=== PATIENT | female | born 1955 | race Caucasian/White ===

== ENCOUNTER 2018-10-09 23:24 | Emergency (ER) | payer OTHER ==
--- NOTE | 2018-10-09 23:26 | ER Report ---
History and Physical Time Seen By MD: 23:22 HPI/ROS CHIEF COMPLAINT: Vomiting and diarrhea 2 days HISTORY OF PRESENT ILLNESS: 62-year-old female brought in from a hotel with complaints of abdominal pain, vomiting and diarrhea. Patient is visiting from [place], [place]. She thinks she may be bad food and food poisoning. She's been unable to keep anything down all day and has been feeling weak. She denies fever or chills. She denies blood in emesis or diarrhea. She denies recent antibiotic use. Patient denies history of abdominal surgery. She does have a history of hypertension. REVIEW OF SYSTEMS: Respiratory: No cough, no dyspnea. Cardiovascular: No chest pain, no palpitations. Gastrointestinal: As above Musculoskeletal: No back pain. Allergies: Coded Allergies: No Known Drug Allergies (Unverified , 10/09/18) Home Meds Reported Medications Escitalopram Oxalate (ESCITALOPRAM OXALATE) 10 Mg Tablet, 10 MG PO QDAY, TAB 10/09/18 [Ic Klor- Con M20] No Conflict Check, 3 TAB PO 10/09/18 Levothyroxine Sodium (LEVOTHYROXINE SODIUM) 75 Mcg Tablet, 75 MCG PO QDAY, TAB 10/09/18 Atenolol/Chlorthalidone (ATENOLOL-CHLORTHALIDONE 100-25) 1 Each Tablet, 1 EACH PO QDAY, TAB 10/09/18 Reviewed Nurses Notes: Yes Old Medical Records Reviewed: Yes Constitutional Vital Sign - Last 24 Hours 10/09/18 10/09/18 10/09/18 10/10/18 23:24 23:26 23:26 01:00 Temp 98.9 Pulse 53 51 Resp 20 B/P (MAP) 170/90 170/90 (116) 188/83 (118) Pulse Ox 91 91 96 10/10/18 10/10/18 10/10/18 10/10/18 01:30 02:00 02:30 02:35 Pulse 52 49 47 B/P (MAP) 168/92 (117) 156/87 (110) 165/84 (111) Pulse Ox 95 96 92 98 10/10/18 10/10/18 10/10/18 10/10/18 03:02 03:05 03:30 03:35 Pulse 42 44 B/P (MAP) 151/79 (103) 165/80 (108) Pulse Ox 96 96 10/10/18 04:00 B/P (MAP) 164/86 (112) Physical Exam Vital signs stable, afebrile, pulse ox normal General Appearance: The patient is alert, has no immediate need for airway protection and no current signs of toxicity. Slightly pale appearing, skin warm and dry HEENT: Pupils equal and round no injection. Oropharynx without redness or exud ate Respiratory: Chest is non tender, lungs are clear to auscultation. Cardiac: regular rate and rhythm Gastrointestinal: Abdomen is soft and non tender, no masses, bowel sounds normal. Musculoskeletal: Neck: Neck is supple and non tender. No lymphadenopathy Extremities have full range of motion and are non tender. Skin: No rashes or lesions. DIFFERENTIAL DIAGNOSIS: After history and physical exam differential diagnosis was considered for abdominal pain including but not limited to appendicitis, cholecystitis, gastroenteritis, food poisoning, viral syndrome gastritis and urinary tract infection. Medical Decision Making Data Points Result Diagram: 10/09/18 7417 10/09/18 6753 Laboratory Hematology Test 10/09/18 23:59 White Blood Count 9.2 k/uL (4.5-11.0) Red Blood Count 4.89 M/uL (4.17-5.56) Hemoglobin 14.7 g/dL (12.0-16.0) Hematocrit 43.7 % (34.0-47.0) Mean Corpuscular Volume 89.4 fL (80.0-96.0) Mean Corpuscular Hemoglobin 30.1 pg (26.0-33.0) Mean Corpuscular Hemoglobin Concent 33.7 g/dL (32.0-36.0) Red Cell Distribution Width 13.8 % (11.5-14.5) Platelet Count 259 K/uL (150-450) Mean Platelet Volume 7.6 fL (7.2-11.1) Neutrophils (%) (Auto) 87.3 % (39.4-72.5) H Lymphocytes (%) (Auto) 7.9 % (17.6-49.6) L Monocytes (%) (Auto) 3.9 % (4.1-12.4) L Eosinophils (%) (Auto) 0.2 % (0.4-6.7) L Basophils (%) (Auto) 0.7 % (0.3-1.4) Nucleated RBC Relative Count (auto) 0.0 /100WBC Neutrophils # (Auto) 8.1 K/uL (2.0-7.4) H Lymphocytes # (Auto) 0.7 K/uL (1.3-3.6) L Monocytes # (Auto) 0.4 K/uL (0.3-1.0) Eosinophils # (Auto) 0.0 K/uL (0.0-0.5) Basophils # (Auto) 0.1 K/uL (0.0-0.1) Nucleated RBC Absolute Count (auto) 0.00 K/uL Chemistry Test 10/09/18 23:59 Sodium Level 137 mmol/L (137-145) Potassium Level 2.8 mmol/L (3.5-5.0) Chloride Level 99 mmol/L (98-107) Carbon Dioxide Level 27 mmol/L (22-31) Blood Urea Nitrogen 13 mg/dl (7-18) Creatinine 0.80 mg/dl (0.52-1.04) Glomerular Filtration Rate Calc > 60.0 Random Glucose 185 mg/dl (75-110) Calcium Level 9.2 mg/dl (8.4-10.2) Total Bilirubin 4.2 mg/dl (0.2-1.3) Aspartate Amino Transf (AST/SGOT) 388 U/L (0-35) Alanine Aminotransferase (ALT/SGPT) 449 U/L (0-56) Alkaline Phosphatase 240 U/L (0-126) Total Protein 7.5 g/dl (6.3-8.2) Albumin 4.0 g/dl (3.5-5.0) Amylase Level 2298 U/L (0-110) Lipase 20234 U/L (23-300) Urinalysis Test 10/10/18 00:05 Urine Color [place] Urine Clarity Slightly-cloudy Urine pH 5.0 pH (4.8-9.5) Urine Specific [place] 1.015 Urine Protein 100 mg/dL (NEGATIVE) Urine Glucose (UA) Negative mg/dL (NEGATIVE) Urine Ketones 20 mg/dL (NEGATIVE) Urine Blood Moderate (NEGATIVE) Urine Nitrite Negative (NEGATIVE) Urine Bilirubin Negative (NEGATIVE) Urine Urobilinogen 2.0 mg/dL (0.2-1.9) Urine Leukocyte Esterase Trace (NEGATIVE) Urine RBC 2-4 /HPF (0-2/HPF) Urine WBC 10-15 /HPF (0-5/HPF) Urine Squamous Epithelial Cells Many /LPF (</=FEW) Urine Bacteria Moderate /HPF (NONE-FEW) Urine Mucus None /HPF (NONE-FEW) Microbiology Microbiology Date/Time Source Procedure Growth Status 10/10/18 00:05 Clean Catch Midstream Ur Urine Culture - Preliminary NO GROWTH SO FAR, SET LATE. REINCUBATED Resulted EKG/Imaging Imaging Results: Ultrasound of the gallbladder ultrasound was obtained. The results of the study are EXAMINATION: Limited right upper quadrant ultrasound 10/10/2018 12:52 AM HISTORY: Gallstone pancreatitis on labs. COMPARISON STUDIES: none. FINDINGS: Gallbladder: Multiple small gallstones in the gallbladder. Gallbladder wall is not significantly thickened or edematous. Sonographic Argueta sign is negative. Liver: Echogenicity may be minimally increased compared to the kidney suggesting slight fatty infiltration. No clear cirrhotic features. No focal lesion. Common duct: 3 mm Pancreas: A good portion of the pancreas is well-seen and unremarkable. Portions of the tail were not completely seen due to bowel gas. Right kidney: negative Upper abdominal aorta and IVC: negative Ascites: none IMPRESSION: 1. Cholecystolithiasis. No sonographic findings of acute cholecystitis or biliary obstruction. No visualized choledocholithiasis. 2. Incomplete visualization of the pancreatic tail. The study was read by the radiologist. I viewed the images myself on the PACS system. ED Course/Re-evaluation Clinical Indication for ER IV: Hydration, IV Access ED Course Patient was admitted to an examination room. H&P was done. The differential diagnoses was considered. Patient with abdominal pain, vomiting and diarrhea for 2 days. Diagnostic evaluation was undertaken. Her laboratory studies return, grossly abnormal with gallstone pancreatitis. His clinical suspicion. White blood cell count is 9000 without significant shift. Her LFTs, lipase, amylase bilirubin are all grossly elevated, consistent with gallstone pancreatitis. Her potassium returns low at 2.8. A potassium bolus is ordered IV. He is given Zofran and normal saline 1 L bolus, as well as fentanyl 50 g IV. After consultation with Dr. Tenorio who will be accepting her for ERCP in the morning. Zosyn 3.375 g was given IV. Patient will need ERCP which is unavailable at our facility. 10/10/2018 12:52:50 am case discussed with Dr. Russell Tenorio general surgery at [facility] who performs ERCP accepts the patient. He would like the patient sent down to the trauma surgeon, Dr Payan general surgery 10/10/2018 2:36:54 am case was discussed with dr Payan who accepts the pat ient for transfer to [facility] ER. Decision to Disposition Date: Oct 10, 2018 Decision to Disposition Time: 00:36 Depart Departure Latest Vital Signs Vital Signs Date Time Temp Pulse Resp B/P (MAP) Pulse Ox O2 Delivery O2 Flow Rate FiO2 10/10/18 04:00 164/86 (112) 10/10/18 03:35 44 96 10/09/18 23:26 98.9 20 Impression: Primary Impression: Acute gallstone pancreatitis Additional Impressions: Status post nephrectomy Hypertension Hypothyroidism Depression Hypokalemia Condition: Improved Disposition: [facility]FER TO [facility] Problem Qualifiers Additional Impressions: Hypertension Hypertension type: essential hypertension Qualified Codes: I10 - Essential (primary) hypertension Hypothyroidism Hypothyroidism type: unspecified Qualified Codes: E03.9 - Hypothyroidism, unspecified Depression Depression Type: unspecified Qualified Codes: F32.9 - Major depressive disorder, single episode, unspecified VALERIY DIAL DO Oct 09, 2018 23:26
[2018-10-09] MEDS ORDERED: NS(*) 0.9% 1000 ML BAG 1,000 ML IV ONE (23:27)
[2018-10-09] MEDS ORDERED: [UNRECOGNIZED DRUG - OTHER] PO (23:36)
[2018-10-09] MEDS ORDERED: ESCI10TA8 PO (23:36)
[2018-10-09] MEDS ORDERED: LEVO75TA73 PO (23:36)
[2018-10-09] MEDS ORDERED: ATEN1TAB39 PO (23:36)
[2018-10-09] MEDS ORDERED: ONDANSETRON 4 MG/2 ML VIAL IVP ONE (23:45)
[2018-10-10 00:13] LABS: PLATELET COUNT, AUTOMATED 259 K/uL (150-450)
[2018-10-10] MEDS ORDERED: fentaNYL CITR 100 MCG/2 ML AMP IVP ONE (00:50)
[2018-10-10] MEDS ORDERED: PIPERACILLIN/TAZO*3.375GM VIAL 3.375 GM in NS(*) 0.9% 100 ML MINI-BAG 100 ML IVPB ONE (00:55)
[2018-10-10] MEDS ORDERED: KCL (*) 20 MEQ/100 ML PREMIX 100 ML IV ONE (02:10)
[2018-10-10] MEDS ORDERED: LR(*) 1000 ML BAG 1,000 ML IV PRN (02:10)
--- NOTE | 2018-10-10 02:13 | RADIOLOGY IMAGING REPORT ---
FACILITY: [facility] - [place] PATIENT NAME: Cathy Rider : 1955 MR: [id number] V: [id number] EXAM DATE: ORDERING PHYSICIAN: VALERIY DIAL TECHNOLOGIST: Location: [facility] - [place] Patient: Cathy Rider : 1955 Visit/Account:[id number] Date of Sevice: 10/10/2018 EXAMINATION: Limited right upper quadrant ultrasound 10/10/2018 12:52 AM HISTORY: Gallstone pancreatitis on labs. COMPARISON STUDIES: none. FINDINGS: Gallbladder: Multiple small gallstones in the gallbladder. Gallbladder wall is not significantly thic kened or edematous. Sonographic Argueta sign is negative. Liver: Echogenicity may be minimally increased compared to the kidney suggesting slight fatty infiltr ation. No clear cirrhotic features. No focal lesion. Common duct: 3 mm Pancreas: A good portion of the pancreas is well-seen and unremarkable. Portions of the tail were not completely seen due to bowel gas. Right kidney: negative Upper abdominal aorta and IVC: negative Ascites: none IMPRESSION: 1. Cholecystolithiasis. No sonographic findings of acute cholecystitis or biliary obstruction. No vis ualized choledocholithiasis. 2. Incomplete visualization of the pancreatic tail. Report Dictated By: Alvaro Rodriguez MD at 10/10/2018 2:04 AM Report E-Signed By: Alvaro Rodriguez MD at 10/10/2018 2:06 AM WSN:[id number]
[2018-10-10 04:00] VITALS: BP 164/86
== END 2018-10-10 04:14 | disposition short-term general hospital (02) ==
LOC: ER 23:28
DX: K85.10 Biliary acute pancreatitis without necrosis or infection (principal); I10 Essential (primary) hypertension; E03.9 Hypothyroidism, unspecified; E87.6 Hypokalemia; F32.9 Major depressive disorder, single episode, unspecified; Z90.5 Acquired absence of kidney; Z79.899 Other long term (current) drug therapy
CPT/HCPCS: 76705; 81001; 82150; 83690; 85025; 87088; 96365; 96367; 96375; 99285; J2405; J2543; J3010; J3480; J7030; J7120; 82040; 82247; 82310; 82374; 82435; 82565; 82947; 84075; 84132; 84155; 84295; 84450; 84460; 84520

== ENCOUNTER → 2018-10-09 | Outpatient (CLI) | payer OTHER ==
[~2018-10-09] MED LIST: ATEN1TAB39 PO; ESCI10TA8 PO; LEVO75TA73 PO; [UNRECOGNIZED DRUG - OTHER] PO
== END ==
LOC: AMB 23:08
PROVIDERS: ATTEND Nurse Practitioner
DX: R11.2 Nausea with vomiting, unspecified (principal); R10.9 Unspecified abdominal pain
CPT/HCPCS: A0425; A0427

== ENCOUNTER → 2018-10-10 | Outpatient (CLI) | payer OTHER | LOC: AMB 04:10 | PROVIDERS: ATTEND Nurse Practitioner | DX: K85.90 Acute pancreatitis without necrosis or infection, unspecified (principal) | CPT/HCPCS: A0425; A0433 ==